=== PATIENT | female | born 1950 | race American Indian/Alaskan Native ===

== ENCOUNTER 2018-04-06 09:55 | Outpatient (CLI) | payer MEDICARE ==
--- NOTE | 2018-04-07 11:07 | Mammography Report ---
BILATERAL DIGITAL SCREENING MAMMOGRAM with CAD : 04/06/18 09:55:00 CLINICAL: Routine screening.History of bilateral benign biopsies. COMPARISON:02/12/16 FINDINGS: The breasts are heterogeneously dense, which may obscure small masses.Right retroareolar biopsy clips. Bilateral benign calcifications. No mass, architectural distortion or suspicious calcifications. IMPRESSION: No mammographic evidence of malignancy. BI-RADS CATEGORY: 2 -- Benign RECOMMENDATION: Routine mammographic screening in one year. COMMENT: Patient follow-up letters are generated by our [employer] application.
== END 2018-04-06 09:56 | disposition home or self-care (01) ==
LOC: SPVWC 09:55
PROVIDERS: ATTEND Physician Assistant
DX: Z12.31 Encounter for screening mammogram for malignant neoplasm of breast (principal)
CPT/HCPCS: 77067

== ENCOUNTER 2019-04-10 15:44 | Outpatient (CLI) | payer MEDICARE ==
--- NOTE | 2019-04-11 08:29 | Mammography Report ---
BILATERAL DIGITAL SCREENING MAMMOGRAM WITH CAD INDICATION: Routine screening mammography. TECHNIQUE: Digital bilateral 2D mammography was obtained in the craniocaudal and mediolateral obliq ue projections. This examination was interpreted with the benefit of Computer-Aided Detection analysi s. COMPARISON: 04/06/2018 and 02/12/2016 FINDINGS: Breast Density: The breasts are heterogeneously dense, which may obscure small masses. No mass, architectural distortion or suspicious calcifications. Right retroareolar surgical clips. IMPRESSION:No mammographic evidence of malignancy. BI-RADS Category 2: Benign. No mammographic evidence of malignancy. Recommend routine screening ma mmography in one year. A "normal" or negative report should not discourage follow up or biopsy of a clinically significant f inding. A written summary of these findings will be mailed to the patient. The patient will be entered into a mammography reporting system which will generate a reminder letter for the patient's next appointmen t at the appropriate interval. The [employer] recommends yearly mammograms starting at age 40 and continuing as l lela as a woman is in good health. Breast MRI is recommended for women with an approximate 20-25% or greater lifetime risk of breast cancer, including women with a strong family history of breast or ova paresh cancer or who have been treated for Hodgkin's disease. Signer Name: Montana Almonte MD Signed: 04/11/2019 8:24 AM Workstation Name: [id number]
== END 2019-04-10 15:45 | disposition home or self-care (01) ==
LOC: SPVWC 15:44
PROVIDERS: ATTEND Physician Assistant
DX: Z12.31 Encounter for screening mammogram for malignant neoplasm of breast (principal)
CPT/HCPCS: 77067

== ENCOUNTER 2020-05-20 13:07 | Outpatient (CLI) | payer MEDICARE | END 2020-05-20 13:08 | disposition home or self-care (01) | LOC: SPVWC 13:07 | PROVIDERS: ATTEND Physician Assistant | DX: Z12.31 Encounter for screening mammogram for malignant neoplasm of breast (principal) | CPT/HCPCS: 77067 ==

== ENCOUNTER 2021-05-21 11:44 | Outpatient (CLI) | payer MEDICARE ==
--- NOTE | 2021-05-21 17:06 | Mammography Report ---
DIGITAL SCREENING MAMMOGRAM WITH CAD, 05/21/2021 CLINICAL INFORMATION / INDICATION: Routine screening mammography. SCREENING MAMMO TECHNIQUE: Digital bilateral 2D mammography was obtained in the craniocaudal and mediolateral obliqu e projections. This examination was interpreted with the benefit of Computer-Aided Detection analysis . COMPARISON: 05/20/2020, 04/10/2019 FINDINGS: Breast Density: There are scattered areas of fibroglandular density. No dominant mass, suspicious calcifications, or architectural distortion in either breast. Postsurgical changes are noted bilaterally. There are stable bilateral calcifications. IMPRESSION: No mammographic evidence of malignancy. Follow up recommendation: Routine yearly BI-RADS Category 2: Benign. A "normal" or negative report should not discourage follow up or biopsy of a clinically significant f inding. A written summary of these findings will be mailed to the patient. The patient will be entered into a mammography reporting system which will generate a reminder letter for the patient's next appointmen t at the appropriate interval. The [employer] recommends yearly mammograms starting at age 40 and continuing as l lela as a woman is in good health. Breast MRI is recommended for women with an approximate 20-25% or greater lifetime risk of breast cancer, including women with a strong family history of breast or ova paresh cancer or who have been treated for Hodgkin's disease. Signer Name: Roberto Aleman MD Signed: 05/21/2021 5:02 PM Workstation Name: [id number]
--- NOTE | 2021-05-22 08:36 | Mammography Report ---
DEXA BONE DENSITY SCAN INDICATION: ASYMPTOMATIC MENOPAUSAL STATE, COMPARISON: None available. LUMBAR SPINE (L1-L4): Bone mineral density (BMD) is 1.282 g/cm2. T-score is 1.2 (standard deviations of Young Adult mean). Z-score is 3.6 (standard deviations of Age Matched mean). LEFT FEMORAL NECK: Bone mineral density (BMD) is 1.120 g/cm2. T-score is 1.2 (standard deviations of Young Adult mean). Z-score is 2.6 (standard deviations of Age Matched mean). IMPRESSION: 1. WHO Classification: Normal bone density. Fracture Risk: Not Increased. Signer Name: Roger Galindo MD Signed: 05/22/2021 8:32 AM Workstation Name: [id number]
== END 2021-05-21 11:45 | disposition home or self-care (01) ==
LOC: SPVWC 11:44
PROVIDERS: ATTEND Physician Assistant
DX: Z12.31 Encounter for screening mammogram for malignant neoplasm of breast (principal); Z78.0 Asymptomatic menopausal state
CPT/HCPCS: 77067; 77080